=== PATIENT | male | born 2000 | race Caucasian/White ===

== ENCOUNTER 2019-12-27 20:27 | Observation (INO) | payer OTHER ==
[~2019-12-27] VITALS: Ht 170.2 cm; Wt 57.4 kg
[2019-12-27 20:59] LABS: HEMATOCRIT 41.4 % (42.0-52.0); HEMOGLOBIN 13.8 g/dl (13.5-18.0); MEAN CELL VOLUME 85 fl (80.0-100.0); MEAN CORPUSCULAR HEMOGLOBIN 28 pg (27.0-31.0); MEAN CORPUSCULAR HGB CONC 33 g/dl (33.0-37.0); MEAN PLATELET VOLUME 10.2 fl (7.4-10.4); PLATELET COUNT 254 K/mm3 (130-400); RED BLOOD COUNT 4.88 M/mm3 (4.20-5.60); REDCELL DISTRIBUTION WIDTH-CV 12.3 % (11.5-14.5)
[2019-12-27 21:01] VITALS: BP 112/80
[2019-12-27 21:24] LABS: EOSINOPHIL 2 % (0-4); LYMPHOCYTE 46 % (20.0-51.0); NEUTROPHILS 48 % (42.0-75.2)
[2019-12-27 21:25] LABS: PLATELET ESTIMATE NORMAL (NORMAL)
[2019-12-27 21:25] LABS: ALANINE AMINOTRANSFERASE 12 U/L (4-49); ALBUMIN 4.3 gm/dL (3.5-5.0); ALKALINE PHOSPHATASE 55 U/L (50-136); ANION GAP 7 mmol/L (7-16); AST,SGOT 25 U/L (15-37); BILIRUBIN,TOTAL 0.8 mg/dL (0.0-1.0); BLOOD UREA NITROGEN 11 mg/dL (9-20); CALCIUM 9.4 mg/dL (8.4-10.2); CARBON DIOXIDE 28 mmol/L (22-30); CHLORIDE 103 mmol/L (98-107); CREATININE, serum 0.84 (0.66-1.25); GLUCOSE 92 mg/dL (74-106); POTASSIUM 3.5 mmol/L (3.4-5.0); SODIUM 138 mmol/L (137-145); TOTAL PROTEIN 7.7 gm/dL (6.4-8.2)
[2019-12-27 21:27] LABS: C-REACTIVE PROTEIN < 0.5 mg/dL (0.0-0.9)
[2019-12-27 21:36] LABS: TROPONIN-I < 0.012 ng/mL (0.000-0.035)
--- NOTE | 2019-12-28 00:39 | NUR ---
Pt report received from ER nurse. Pt is being admitted to the medical floor for pneumomedialstinum and presented with chest pain and SOA when Pt arrived at the ED. Pt is currently is stable condition with no s/s of distress reported. Pt denies pain at this time per report. Awaiting Pt arrival to the unit.
--- NOTE | 2019-12-28 00:56 | NUR ---
Pt admitted to the medical unit and brought to the floor by ED staff and escorted by his girlfriend. Pt and girlfriend educated on facility visitor policy per covid protocols. Pt states understanding and reports that if his girlfriend cannot stay with him he wants to go home and deal with any procedures on an outpatient basis. Charge nurse Tita RIVER and Beam House Inspector Shaun RIVER notified of Pt statements. Charge nurse Tita RN states that Beam House Inspector will be down to talk to patient shortly. Pt educated on Beam House Inspector will be down shortly and Pt states understanding. Pt oriented to room and call light system and how to operate the tv. Pt states understanding of all education.
--- NOTE | 2019-12-28 01:33 | NUR ---
Pt has decided to remain inpatient and not go home at this time. Will continue to monitor. Education provided that Pt has an order for NPO at this time due to upcoming procedure. Pt states understanding of education.
[2019-12-28 02:49] VITALS: BP 123/73; PULSE 50; TEMP 97.6
--- NOTE | 2019-12-28 03:38 | NUR ---
Pt resting in bed peacefully with lights off and preparing to fall asleep. No s/s of distress noted. IV fluids infusing without complications nor s/s of adverse reactions. Will continue to monitor. Call light within reach.
[2019-12-28 05:03] VITALS: BP 106/56; PULSE 53; TEMP 97.6
[2019-12-28 07:39] VITALS: BP 105/57; PULSE 78; TEMP 98.3
--- NOTE | 2019-12-28 08:03 | NUR ---
PATIENT LAYING PRONE IN BED WITH EYES CLOSED. PRESENTS WITH EVEN NON LABORED RESPIRATIONS. SHERIF PINK AND WARM. NS INFUSING AT 125ML/HR THROUGH RIGHT AC 20G. TELEMETRY MONITORING IN PLACE WITH NSR. SEE FLOW SHEET FOR DOCUMENT FVS THIS AM WNL.
[2019-12-28 09:36] LABS: BASO # 0.1 (0.0-0.2); EOS # 0.1 (0.0-0.7); EOS % 1.6 % (0-4.0); GRAN # 2.4 (1.4-6.5); GRAN % 47.4 % (42.2-75.2); HEMOGLOBIN 14.1 g/dl (13.5-18.0); LYMPH # 2.1 (1.2-3.4); LYMPH % 42.3 % (20.0-51.0); MEAN CELL VOLUME 85 fl (80.0-100.0); MEAN CORPUSCULAR HEMOGLOBIN 28 pg (27.0-31.0); MEAN CORPUSCULAR HGB CONC 34 g/dl (33.0-37.0); MEAN PLATELET VOLUME 10.3 fl (7.4-10.4); MONO # 0.4 (0.1-0.6); MONO % 7.7 % (1.7-9.3); PLATELET COUNT 245 K/mm3 (130-400); RED BLOOD COUNT 4.97 M/mm3 (4.20-5.60); REDCELL DISTRIBUTION WIDTH-CV 12.5 % (11.5-14.5)
[2019-12-28 09:52] LABS: ALBUMIN 4.3 gm/dL (3.5-5.0); BILIRUBIN,TOTAL 1.5 mg/dL (0.0-1.0); CALCIUM 9.2 mg/dL (8.4-10.2); CREATININE, serum 0.77 (0.66-1.25); POTASSIUM 3.8 mmol/L (3.4-5.0); TOTAL PROTEIN 7.8 gm/dL (6.4-8.2)
[2019-12-28 11:19] VITALS: BP 110/63; PULSE 60; TEMP 97.4
--- NOTE | 2019-12-28 11:23 | NUR ---
First visit from the youth teacher. No needs right now.
--- NOTE | 2019-12-28 13:44 | NUR ---
SW met with the patient to complete initial intake. The patient lives in [facility] with his parents and fiance. The patient denies DME use and is independent with ADLs. The patient's PCP is PAMELA Cristina in [place] and patient receives medications from [facility] pharmacy. The patient does not have advanced directives and was not interested in a DPOA-HC form. The patient plans to return home at discharge. There are no additional needs at this time.
[2019-12-28 15:56] VITALS: BP 112/68; PULSE 62; TEMP 98.2
[2019-12-28] MEDS ORDERED: TYLENOL 500MG500 MG PO (16:53)
--- NOTE | 2019-12-28 17:40 | NUR ---
PATIENT DC TO HOME @ 1730 VIA POV ACCOMPANIED BY GIRL FRIEND. AT TIME OF DC A/O X 4. DENIES C/O PAIN OR SOA. ATTITUDE CALM AND PLEASANT. PRINTED DC INSTRUCTIONS TO INCLUDE F/U AND DIET AND EXERCISE REVIEWED WITH PATIENT AND GIRL FRIEND. ALL QUESTIONS AND CONCERNS ADDRESSED DURING REVIEW. AMBULATED OFF UNIT.
== END 2019-12-28 17:30 | disposition home or self-care (01) ==
LOC: COL.ER 20:27 → MEDICAL 23:26
PROVIDERS: Emergency Medicine; ADMIT Surgery
DX: J98.2 Interstitial emphysema (principal); J45.909 Unspecified asthma, uncomplicated; I35.1 Nonrheumatic aortic (valve) insufficiency; I77.810 Thoracic aortic ectasia
CPT/HCPCS: A9284; G0378; J7030; J7120; Q9967